=== PATIENT | female | born 1990 | race American Indian/Alaskan Native ===

== ENCOUNTER 2025-04-01 13:05 | Emergency (ER) | payer OTHER ==
[~2025-04-01] VITALS: Ht 162.6 cm; Wt 52.2 kg
[2025-04-01] MEDS ORDERED: ONDANSETRON HCL 2 MG/ML VIAL IV ONE (15:00)
[2025-04-01] MEDS ORDERED: FAMOTIDINE/PF 20 MG/2 ML VIAL IV ONE (15:00)
[2025-04-01] MEDS ORDERED: 0.9 % SODIUM CHLORIDE 500 ML IV ONE (15:00)
[2025-04-01] MEDS ORDERED: FAMOTIDINE/PF 20 MG/2 ML VIAL ONE (15:10)
[2025-04-01] MEDS ORDERED: ONDANSETRON HCL 2 MG/ML VIAL ONE (15:10)
[2025-04-01 15:36] LABS: BASO % 0.3 % (0.1-1.2); EOS # 0.01 (0.04-0.54); EOS % 0.1 % (0.7-7.0); LYMPH # 1.76 (1.18-3.74); LYMPH % 19.3 % (19.3-53.1); MEAN PLATELET VOLUME 10.00 fl (9.4-12.4); MONO # 0.35 (0.24-0.82); MONO % 3.8 % (4.7-12.5); NEUT # 6.94 (1.56-6.13); NEUT % 76.3 % (34.0-71.1); RED CELL DISTRIBUTION WIDTH 13.2 % (11.6-14.4)
[2025-04-01 15:58] LABS: INR 0.97
[2025-04-01 16:05] LABS: ALT/SGPT 18.0 U/L (12-78); AST/SGOT 20.0 U/L (15-37); BILIRUBIN TOTAL 0.99 mg/dL (0.3-1.2); BUN CREA RATIO 9.0 (7.0-25.0); CREATININE SERUM 0.53 mg/dL (0.55-1.02); GFR 130.53; GLOBULINA 4.4 G/DL (2.4-3.5); GLUCOSE FASTING 89.0 mg/dL (65-100); OSMOLALITY SERUM 278.0 MOSM/KG (275-295)
[2025-04-01 16:18] LABS: URINE APPEARANCE Clear; URINE BILIRRUBIN Negative (NEGATIVE); URINE BLOOD Negative; URINE COLOR Yellow; URINE GLUCOSE Negative (NEGATIVE); URINE LEUKOCYTE Negative; URINE NITRATE Negative; URINE PROTEIN Negative (NEGATIVE); URINE UROBILINOGEN 0.2 E.U./dl
[2025-04-01 16:20] LABS: URINE BACTERIA 458.3 uL (0.0-1933); URINE EPITHELIAL CELLS 38.4 uL (0.0-38.8)
[2025-04-01 16:37] LABS: URINE KETONE 40 (NEGATIVE); URINE RBC 1.1 uL (0.0-20.8)
[2025-04-01 16:38] LABS: URINE CAST 0.00 uL (0.0-1.40); URINE WBC 1.6 uL (0.0-23.2)
[2025-04-01] MEDS ORDERED: PEPCID AC20 MG PO (18:05)
[2025-04-01] MEDS ORDERED: DICLOFENAC SODI50 MG PO (18:22)
== END 2025-04-01 19:32 | disposition home or self-care (01) ==
LOC: ER 13:05
PROVIDERS: Emergency Medicine
DX: R10.9 Unspecified abdominal pain (principal); N83.291 Other ovarian cyst, right side
CPT/HCPCS: 74177; 96365; 96366; 99284; J2405; J3490; J7042; Q9965